=== PATIENT | male | born 2000 | race African-American/Black ===

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

== ENCOUNTER 2018-02-03 10:34 | Emergency (ER) | payer MEDICAID ==
[2018-02-03] MEDS ORDERED: D5W NS 1,000 ML IV ONE (11:17)
[2018-02-03] MEDS ORDERED: ONDANSETRON 4 MG/2 ML VIAL IVP ONE (11:17)
--- NOTE | 2018-02-03 11:28 | EDPHY ---
H & P Time Seen by Provider: 02/03/18 10:38 HPI/ROS: CHIEF COMPLAINT: Weight loss, nausea HISTORY OF PRESENT ILLNESS: Patient presents today with his mother for concerns about weight loss, poor appetite, nausea. He has history of cyclic vomiting syndrome has been seen at this facility many times in the past. Per his mother patient has been"not himself"for probably 6 months. He has had decreased appetite with a 20-30 lb weight loss over 6 months. He has had poor sleep. She states"things he loves go by the wayside". All he does is go to work and spent a lot of time in bed. Patient states he"feels fine", but he is an interested in food and swallowing his saliva makes him nauseous. He has self -induced vomiting occasionally. Patient does have history of using cannabis but states he has used an for 1 week. He denies other drugs or alcohol. He denies suicidal ideations now or any time in the past. No history or suggestion of psychosis or delusional thinking. REVIEW OF SYSTEMS: Contents of 10 point review of systems otherwise negative except for what is mentioned in HPI. General Appearance: Alert, no distress. Eyes: Pupils equal and round no icterus Respiratory: No respiratory distress Abdomen: Soft nontender nondistended. Bowel sounds normal. Neurological: Awake, alert, no focal deficits. Skin: Warm and dry, no rashes. Musculoskeletal: Neck is supple nontender. Extremities are symmetrical, full range of motion, no edema. Psychiatric: Patient is oriented X 3, there is no agitation. Medical/surgical history: Attention deficit hyperactivity disorder, cyclic vomiting syndrome. Social history: No tobacco or alcohol use. No history of IV drug use ever. [facility] is primary care. Never seen therapist or psychiatrist. Smoking Status: Never smoked Constitutional: Initial Vital Signs Temperature (C) 37.1 C 02/03/18 10:37 Heart Rate 85 02/03/18 10:37 Respiratory Rate 16 02/03/18 10:37 Blood Pressure 143/95 H 02/03/18 10:37 O2 Sat (%) 96 02/03/18 10:37 O2 Delivery Mode Room Air Allergies/Adverse Reactions: amoxicillin [Amoxicillin] Allergy (Verified 02/03/18 10:37) Pt reports Hives Home Medications: Medication Instructions Recorded Ambreen 01/04/18 Potassium Citrate [Potassium 30 meq PO BID #14 tablet.er 02/03/18 Citrate ER] Medical Decision Making ED Course/Re-evaluation: Shara Martins RN, called watch caser over at [facility] and plan is for follow -up with [facility] this coming week. Patient given 20 mEq of IV potassium as well as 20 mEq of p.o. potassium. Recheck however shows 2.3 with no change. Other electrolytes normalized. Discussed with patient need for continued IV infusion of potassium verses admission to hospital and he refused. Patient has capacity to refuse care and understands risks and benefits of leaving against medical advice. Nevertheless I will discharge him with potassium supplementation and strongly encouraged him to follow up with [facility] tomorrow for recheck of his potassium levels. Additionally he will follow up with [facility] as discussed earlier. Differential Diagnosis: Differential diagnosis includes but is not limited to depression, anorexia, electrolyte abnormality, dehydration, cyclic vomiting. Patient's presentation today consistent with depression and we have arranged for him to get follow-up with [facility]. However secondary to his decreased oral intake electrolytes are significantly abnormal. Potassium in particular is low at 2.3. Despite replacement in the emergency department values did not change. Patient refusing further potassium replacement or admission. He will be signed out against medical advice however he will be discharged with potassium replacement prescription and strong encouragement to follow up with [facility] for recheck. Also reviewed return precautions in detail. - Data Points Laboratory Results: 02/03/18 02/03/18 02/03/18 14:13 11:37 11:31 POC Hgb 17.0 gm/dL gm/dL (13.7-17.5) POC Hct 50 % % (40-51) POC Sodium 134 mEq/L L mEq/L 133 mEq/L L mEq/L 129 mEq/L L mEq/L (135-145) (135-145) (135-145) POC Potassium 2.3 mEq/L L* mEq/L 2.4 mEq/L L* mEq/L 2.4 mEq/L L* mEq/L (3.3-5.0) (3.3-5.0) (3.3-5.0) POC Chloride 91.0 mEq/L L mEq/L 81.0 mEq/L L mEq/L 81 mEq/L L mEq/L (97-110) (97-110) (97-110) POC Total CO2 30 mEq/L mEq/L 33 mEq/L H mEq/L (22-31) (22-31) POC BUN 5 mg/dL L mg/dL 6 mg/dL L mg/dL 6 mg/dL L mg/dL (7-23) (7-23) (7-23) POC Creatinine 0.5 mg/dL L mg/dL 0.7 mg/dL mg/dL 0.9 mg/dL mg/dL (0.7-1.3) (0.7-1.3) (0.7-1.3) POC Glucose 111 mg/dL H mg/dL 99 mg/dL mg/dL 101 mg/dL H mg/dL (70-100) (70-100) (70-100) POC Calcium 9.5 mg/dL mg/dL 10.6 mg/dL H mg/dL (8.5-10.4) (8.5-10.4) Medications Given: Discontinued Medications Dextrose/Sodium Chloride (D5w Ns) 1,000 mls @ 1,000 mls/hr IV ONCE ONE Stop: 02/03/18 12:16 Last Admin: 02/03/18 11:45 Dose: 1,000 mls Potassium Chloride (Potassium Cl 10 Meq (Premix)) 100 mls @ 100 mls/hr IV ONCE ONE Stop: 02/03/18 12:35 Last Admin: 02/03/18 12:08 Dose: 100 mls Potassium Chloride (Potassium Cl 10 Meq (Premix)) 100 mls @ 200 mls/hr IV ONCE ONE Stop: 02/03/18 12:27 Last Admin: 02/03/18 12:45 Dose: 100 mls Magnesium Sulfate/Dextrose (Magnesium Sulf 1 Gm (Premix)) 100 mls @ 100 mls/hr IV ONCE ONE Stop: 02/03/18 13:08 Last Admin: 02/03/18 12:45 Dose: 100 mls Sodium Chloride (Ns) 1,000 mls @ 0 mls/hr IV ONCE ONE PRN Reason: Wide Open Stop: 02/03/18 12:51 Last Admin: 02/03/18 12:55 Dose: 1,000 mls Ondansetron HCl (Zofran) 4 mg IVP EDNOW ONE Stop: 02/03/18 11:18 Last Admin: 02/03/18 11:46 Dose: 4 mg Potassium Chloride (Potassium Chloride Oral Liquid) 20 meq PO EDNOW ONE Stop: 02/03/18 11:39 Last Admin: 02/03/18 12:29 Dose: 20 meq Point of Care Test Results: Chemistry 02/03/18 02/03/18 02/03/18 14:13 11:37 11:31 POC Sodium 134 mEq/L L mEq/L 133 mEq/L L mEq/L 129 mEq/L L mEq/L (135-145) (135-145) (135-145) POC Potassium 2.3 mEq/L L* mEq/L 2.4 mEq/L L* mEq/L 2.4 mEq/L L* mEq/L (3.3-5.0) (3.3-5.0) (3.3-5.0) POC Chloride 91.0 mEq/L L mEq/L 81.0 mEq/L L mEq/L 81 mEq/L L mEq/L (97-110) (97-110) (97-110) POC Total CO2 30 mEq/L mEq/L 33 mEq/L H mEq/L (22-31) (22-31) POC BUN 5 mg/dL L mg/dL 6 mg/dL L mg/dL 6 mg/dL L mg/dL (7-23) (7-23) (7-23) POC Creatinine 0.5 mg/dL L mg/dL 0.7 mg/dL mg/dL 0.9 mg/dL mg/dL (0.7-1.3) (0.7-1.3) (0.7-1.3) POC Glucose 111 mg/dL H mg/dL 99 mg/dL mg/dL 101 mg/dL H mg/dL (70-100) (70-100) (70-100) POC Calcium 9.5 mg/dL mg/dL 10.6 mg/dL H mg/dL (8.5-10.4) (8.5-10.4) ISTAT H&H 02/03/18 11:31 POC Hgb 17.0 gm/dL gm/dL (13.7-17.5) POC Hct 50 % % (40-51) Departure - Departure Clinical Impression: Hypokalemia Depression Qualifiers: Depression Type: unspecified Qualified Code(s): F32.9 - Major depressive disorder, single episode, unspecified Condition: Fair Instructions: Hypokalemia (ED) Additional Instructions: Continue oral potassium replacement as prescribed. Follow up with [facility] tomorrow as well as [facility]. You should get your potassium recheck tomorrow or the next day without fail. Please return to the emergency department for any concerning new symptoms. Referrals: [facility] TURNER [Other] - As per Instructions [facility],. [Clinic] - As per Instructions Prescriptions: Potassium Citrate [Potassium Citrate ER] 30 meq PO BID #14 tablet.er
[2018-02-03] MEDS ORDERED: POTASSIUM Cl (KCl) 100 ML IV ONE ×2 (11:36→11:58)
[2018-02-03] MEDS ORDERED: POTASSIUM CL 20 MEQ/15 ML UDCUP PO ONE (11:38)
[2018-02-03] MEDS ORDERED: MAGNESIUM SULF 1 GM/DEXTROSE 100 ML IV ONE (12:09)
[2018-02-03] MEDS ORDERED: NS 1,000 ML IV ONE (12:50)
[2018-02-03 14:57] VITALS: BP 139/85
--- NOTE | 2018-02-04 15:11 | ASMTCMCOM ---
CM Note CM Note Notes: Received a CM consult order request yesterday while patient was being seen at our [facility] [place] [place] ED. Followed up w/[facility] (pt has been seen at their [place] location) and pt's last visit there was August 2016. Not sure if pt has been receiving primary care elsewhere but [facility] will reach out to the patient to schedule a follow-up for pt's ongoing CVS and depression; also requested/recommended to have a [facility] visit w/pt and/or refer pt to [facility]. CM available for further assistance if needed. Date Signed: 02/04/2018 03:10 PM Electronically Signed By:aMrah Lewis RN
== END 2018-02-03 15:07 | disposition home or self-care (01) ==
LOC: CED 10:34
DX: E87.6 Hypokalemia (principal)
CPT/HCPCS: 80048-PO; 82435-PO; 82565-PO; 82947-PO; 84132-PO; 84295-PO; 84520-PO; 85014-PO; 96365; J2405; J3475; J3480

== ENCOUNTER 2018-03-19 12:34 | Emergency (ER) | payer SELFPAY ==
[2018-03-19] MEDS ORDERED: NS 1,000 ML IV ONE (12:49)
[2018-03-19] MEDS ORDERED: METOCLOPRAMIDE 10 MG/2 ML VIAL IVP ONE (12:50)
--- NOTE | 2018-03-19 13:13 | EDPHY ---
H & P Stated Complaint: cyclical vomitting episode started 2 days ago Time Seen by Provider: 03/19/18 12:42 HPI/ROS: This patient presents with vomiting over the past 2 days with ongoing nausea anorexia and generalized abdominal cramping. The cramping started after the vomiting is described as 8/10 intensity. The symptoms are similar to prior episodes of cyclic vomiting for this patient. His mother brought him here by private vehicle. He reports associated mild lightheadedness today. He reports that he has abstain from marijuana for the past week in attempt to avoid these episodes. However, he admits that he has not followed up with outpatient clinicians that were provided during last visit as follow-up options. ROS: Constitutional: No fevers or chills. HEENT: No URI symptoms or other complaints pulmonary: Reports mild cough in wheeze with occasional shortness of breath. Explains this started over the past 45 days and he is having some yellow sputum production. He uses albuterol inhaler this morning shortly prior to arrival with mild improvement and notes no other exacerbating factors. GI: As per HPI. No hematemesis or coffee-ground emesis. : No dysuria frequency urgency. No urethral discharge. No testicular pain or swelling Integumentary: No skin rash Musculoskeletal: He reports myalgias and stiff muscles earlier today that is now resolved. Neuro: No headache. No focal numbness though he did have diffuse tingling earlier that has since resolved. 10 point review of symptoms is performed and otherwise negative with exception of pertinent positives and negatives listed in HPI and ROS Source: Patient Exam Limitations: No limitations - Personal History Tetanus Vaccine Date: within 10 yrs - Medical/Surgical History Hx Asthma: Yes Hx Chronic Respiratory Disease: No Hx Diabetes: No Hx Cardiac Disease: No Hx Renal Disease: No Hx Cirrhosis: No Hx Alcoholism: No Hx HIV/AIDS: No Hx Splenectomy or Spleen Trauma: No Other PMH: Cyclic vomiting, tonsillectomy, asthma - Family History Significant Family History: No pertinent family hx - Social History Smoking Status: Never smoked Alcohol Use: None Drug Use: Marijuana (Though reports that he abstain for last week.) - Physical Exam Exam: General Appearance: Pleasant young male Alert, no distress. Eyes: Pupils equal and round no pallor or injection. ENT, Mouth: Mucous membranes dry. Respiratory: Faint expiratory wheeze coughing. Rhonchi. No rales Cardiovascular: Tachycardic with no murmur gallop or rub Gastrointestinal: Abdomen is soft and nontender, no masses, bowel sounds normal. Neurological: GCS 15 with no focal deficits Skin: Warm and dry, no rashes. Musculoskeletal: Neck is supple nontender. Extremities are symmetrical, full range of motion. Psychiatric: Mood and affect are normal . DIFFERENTIAL DIAGNOSIS: After history and physical exam differential diagnosis was considered for cyclic vomiting syndrome, dehydration, gastroenteritis, food intolerance, anorexia, bulimia, asthma with mild symptoms, acute bronchitis Constitutional: Initial Vital Signs Temperature (C) 36.7 C 03/19/18 12:42 Heart Rate 106 H 03/19/18 12:42 Respiratory Rate 18 03/19/18 12:42 Blood Pressure 131/79 H 03/19/18 12:42 O2 Sat (%) 99 03/19/18 12:42 O2 Delivery Mode Room Air Allergies/Adverse Reactions: amoxicillin [Amoxicillin] Allergy (Verified 02/03/18 10:37) Pt reports Hives Home Medications: Medication Instructions Recorded Zofran 01/04/18 Potassium Citrate [Potassium 30 meq PO BID #14 tablet.er 02/03/18 Citrate ER] Albuterol Hfa Anes Only [Proair 2 puffs IH Q4 PRN #1 mdi 03/19/18 Hfa Icu (*)] Azithromycin [Zithromax] 250 mg PO DAILY #6 tab 03/19/18 Fluticasone Hfa 220 Mcg [Flovent 2 puffs IH DAILY #1 mdi 03/19/18 220 MCG Hfa MDI (*)] Ondansetron Odt [Zofran Odt] 4 - 8 mg PO Q4PRN PRN #4 tab 03/19/18 Potassium Cl [Klor-Con 20 meq (*)] 20 meq PO DAILY #20 tab 03/19/18 Medical Decision Making ED Course/Re-evaluation: IV normal saline bolus Reglan and Benadryl IV with resolution of his nausea vomiting abdominal pain. P.o. Intake without difficulty. Patient also had supplemental potassium for his hypokalemia single dose with plan to continue the same Given his history of smoking and productive cough with yellow sputum, will cover him with Zithromax for bronchitis. I counseled regarding this. Discussion: Patient with cyclic vomiting syndrome responded well to treatment here with associated bronchitis and hypokalemia-mild. Will treat him with Zofran, Zithromax, albuterol Flovent with plan to follow up with primary care physician. He will also be on supplemental potassium. He understands need to return should develop worsening symptoms. I encouraged him to continue his abstinence from marijuana a reiterating the likely correlation between regular marijuana use in his cyclic vomiting syndrome. Patient voices understanding and expresses a plan to comply. - Data Points Medications Given: Discontinued Medications Diphenhydramine HCl (Benadryl Injection) 25 mg IVP EDNOW ONE Stop: 03/19/18 12:51 Last Admin: 03/19/18 13:22 Dose: 25 mg Sodium Chloride (Ns) 1,000 mls @ 0 mls/hr IV EDNOW ONE; Wide Open PRN Reason: Protocol Stop: 03/19/18 12:50 Last Admin: 03/19/18 13:15 Dose: 1,000 mls Metoclopramide HCl (Reglan Injection) 10 mg IVP EDNOW ONE Stop: 03/19/18 12:51 Last Admin: 03/19/18 13:23 Dose: 10 mg Potassium Chloride (Potassium Chloride Oral Liquid) 20 meq PO EDNOW ONE Stop: 03/19/18 13:44 Last Admin: 03/19/18 13:51 Dose: 20 meq Point of Care Test Results: CBC CBC Collection Date 03/19/18 CBC Collection Time 13:15 WBC 13.3 RBC 5.49 HGB 18.4 HCT 51.2 PLT 350 Neut # 11 Neut 82.9 LYMPH # 1.3 LYMPH 9.4 Other WBC # 1.0 Other WBC 7.7 MCV 93.3 Chemistry 03/19/18 13:23 POC Sodium 136 mEq/L mEq/L (135-145) POC Potassium 2.8 mEq/L L mEq/L (3.3-5.0) POC Chloride 91.0 mEq/L L mEq/L (97-110) POC Total CO2 29 mEq/L mEq/L (22-31) POC BUN 16 mg/dL mg/dL (7-23) POC Creatinine 0.9 mg/dL mg/dL (0.7-1.3) POC Glucose 105 mg/dL H mg/dL (70-100) POC Calcium 11.6 mg/dL H mg/dL (8.5-10.4) Urine Dip Collection Date 03/19/18 Collection Time 15:05 Specific [place] (1.002-1.030) 1.020 PH (5.0-7.5) 6.0 Leukocytes (Negative) 1+ Nitrites (Negative) Negative Protein (Negative) 3+ Glucose (Negative) Negative Ketones (Negative) Negative Urobilnogen (0.2-1.0 EU) 0.2 Bilirubin (Negative) Negative Blood (Negative) 1+ Departure - Departure Disposition: Home, Routine, Self-Care Clinical Impression: Cyclic vomiting syndrome, Dehydration, RAD (reactive airway disease), Bronchitis Condition: Good Instructions: Acute Nausea and Vomiting (ED), Reactive Airways Disease (ED) Additional Instructions: Diagnosis: Cyclic vomiting syndrome 2. Dehydration 3. Reactive airway disease 4. Hypokalemia 5. bronchitis Plan: Stay off marijuana. Zofran for nausea vomiting if needed Flovent steroid inhaler and albuterol inhaler for cough, wheeze shortness of breath Supplemental potassium as prescribed Zithromax antibiotic Follow up with primary care physician Return for any significant worsening despite treatment plan Referrals: NONE *PRIMARY CARE P,. [Primary Care Provider] - As per Instructions Patricia Canales MD [Medical Doctor] - As per Instructions Stand Alone Forms: Work Excuse Prescriptions: Albuterol Hfa Anes Only [Proair Hfa Icu (*)] 2 puffs IH Q4 PRN #1 mdi PRN Reason: Wheezing Azithromycin [Zithromax] 250 mg PO DAILY #6 tab Fluticasone Hfa 220 Mcg [Flovent 220 MCG Hfa MDI (*)] 2 puffs IH DAILY #1 mdi Ondansetron Odt [Zofran Odt] 4 - 8 mg PO Q4PRN PRN #4 tab PRN Reason: Vomiting Potassium Cl [Klor-Con 20 meq (*)] 20 meq PO DAILY #20 tab
[2018-03-19] MEDS ORDERED: POTASSIUM CL 20 MEQ/15 ML UDCUP PO ONE (13:43)
[2018-03-19 14:30] VITALS: BP 132/88
== END 2018-03-19 14:40 | disposition home or self-care (01) ==
LOC: CED 12:34
DX: G43.A0 Cyclical vomiting, in migraine, not intractable (principal); J40 Bronchitis, not specified as acute or chronic; J45.909 Unspecified asthma, uncomplicated; E86.0 Dehydration
CPT/HCPCS: 80048-PO; 96374; J1200; J2765

== ENCOUNTER 2018-07-25 08:58 | Emergency (ER) | payer MEDICAID ==
[2018-07-25] MEDS ORDERED: IBUPROFEN 600 MG TAB PO ONE (09:16)
--- NOTE | 2018-07-25 09:21 | EDPHY ---
H & P Time Seen by Provider: 07/25/18 09:14 HPI/ROS: CHIEF COMPLAINT: Body aches, chills HISTORY OF PRESENT ILLNESS: The patient is a 18-year-old male who presents to the emergency department with body aches and chills. His symptoms started 2 days ago. He has not measured a temperature. He has a mild cough. The triage sheet states it is productive but he is not complaining of significant cough when I question him. He has had no rash. No abdominal pain. No vomiting. No diarrhea. No neck pain or stiffness. No visual changes. No photophobia. REVIEW OF SYSTEMS: 10 systems were reveiwed and are negative with the exception of the elements mentioned in the history of present illness. Past Medical/Surgical History: Includes asthma Past surgical history: Tonsillectomy Social history: Patient does not smoke Smoking Status: Never smoked Physical Exam: 36.6, 143/83, 104, 16, 94% on room air GENERAL: Well-appearing, in no acute distress, alert. HEENT: Eyes normal to inspection, normal pharynx, no signs of dehydration. Normal NECK: Normal, supple. RESPIRATORY: Clear to auscultation bilaterally, no rales, rhonchi or wheezing. Normal CVS: Regular rate and rhythm, no rubs, murmurs, or gallops. ABDOMEN: Soft, nontender, nondistended, no organomegaly. Benign BACK: Normal to inspection, no CVA tenderness. SKIN: Normal color, no rash, warm, dry. No pallor. EXTREMITIES: No pedal edema, no calf tenderness, no Homans sign or cords, no joint swelling. NEURO/PSYCH: Alert and oriented, normal mood and affect, normal motor sensory exam. Constitutional: Initial Vital Signs Temperature (C) 36.6 C 07/25/18 09:06 Heart Rate 104 H 07/25/18 09:06 Respiratory Rate 16 07/25/18 09:06 Blood Pressure 143/83 H 07/25/18 09:06 O2 Sat (%) 94 07/25/18 09:06 O2 Delivery Mode Room Air Allergies/Adverse Reactions: amoxicillin [Amoxicillin] Allergy (Verified 07/25/18 09:07) Pt reports Hives Home Medications: Medication Instructions Recorded Oseltamivir Phosphate [Tamiflu 75 75 mg PO BID 5 Days cap 07/25/18 mg (*)] Medical Decision Making ED Course/Re-evaluation: In the emergency department I discussed possible etiologies with the patient. I answered all his questions. Patient was given a prescription of Tamiflu. He was given Motrin and fluid in the emergency department. Patient was given warnings prior to leaving. He will return with worsening symptoms. Differential Diagnosis: My differential includes but is not limited to viral illness, influenza, pneumonia, bronchitis, asthma exacerbation, acute abdomen, small-bowel obstruction, perforation, appendicitis Departure - Departure Disposition: Home, Routine, Self-Care Clinical Impression: Viral illness Condition: Good Instructions: Viral Syndrome (ED) Additional Instructions: Return with increasing cough, shortness of breath or any other concerns Referrals: Theo Ngo MD [Medical Doctor] - 5-7 days, call for appt. Prescriptions: Oseltamivir Phosphate [Tamiflu 75 mg (*)] 75 mg PO BID 5 Days cap
[2018-07-25 09:32] VITALS: BP 138/78
== END 2018-07-25 09:30 | disposition home or self-care (01) ==
LOC: CED 08:58
DX: B34.9 Viral infection, unspecified (principal)
CPT/HCPCS: 99283-ER

== ENCOUNTER 2018-10-08 18:10 | Emergency (ER) | payer MEDICAID ==
--- NOTE | 2018-10-08 18:17 | EDPHY ---
H & P Time Seen by Provider: 10/08/18 18:16 HPI/ROS: HPI CHIEF COMPLAINT: Vomiting HISTORY OF PRESENT ILLNESS: This patient is a 18-year-old male, history of cyclic vomiting syndrome, asthma, presents emergency room nausea vomiting. Patient states that he had bad milk this afternoon at the gas station. Patient states he picked up a bottle of milk and drank at a gas station he feels that the milk was bad and started having vomiting afterwards. States he vomited mostly curdled milk. No blood. No diarrhea no abdominal pain, no fever , denies any chest pain or shortness of breath. States he vomited numerous times this what prompted him to come the emergency room. Past Medical History: History of cyclic vomiting syndrome, asthma Past Surgical History: Tonsillectomy Social History: Denies drugs alcohol tobacco. Family History: Noncontributory ROS REVIEW OF SYSTEMS: 10 Systems were reviewed and negative with the exception of the elements mentioned in the history of present illness. Exam Constitutional vital signs stable, appears well, nontoxic triage nursing summary reviewed, vital signs reviewed, awake/alert. Eyes normal conjunctivae and sclera, EOMI, PERRLA. HENT normal inspection, atraumatic, moist mucus membranes, no epistaxis, neck supple/ no meningismus, no raccoon eyes. Respiratory clear to auscultation bilaterally, normal breath sounds, no respiratory distress, no wheezing. Cardiovascular rate normal, regular rhythm, no murmur, no edema, distal pulses normal. Gastrointestinal no significant tenderness on exam, soft, non-tender, no rebound, no guarding, normal bowel sounds, no distension, no pulsatile mass. Genitourinary no CVA tenderness. Musculoskeletal no midline vertebral tenderness, full range of motion, no calf swelling, no tenderness of extremities, no meningismus, good pulses, neurovascularly intact. Skin pink, warm, & dry, no rash, skin atraumatic. Neurologic awake, alert and oriented x 3, AAOx3, moves all 4 extremities equally, motor intact, sensory intact, CN II-XII intact, normal cerebellar, normal vision, normal speech. Psychiatric normal mood/affect. Heme/Lymph/Immune no lymphadenopathy. Differential Diagnosis: Includes but is not limited to in a particular order dehydration, gastritis, acute nausea vomiting, food-borne exposure, sour milk Medical Decision Making: Plan for this patient IV establishment IV fluid bolus , IV nausea medicine, IV Pepcid, basic labs and re-evaluate. Re-evaluation: 1944: Patient is requesting discharge. He states he feels much better. Received IV fluids, IV Zofran IV Pepcid. He is not vomiting. He denies any abdominal pain chest pain or shortness of breath, denies fever. He p.o. Challenge well. Patient is requesting be discharged home. We discussed return precautions he understands return to the emergency room if develops worsening abdominal pain, fever, vomiting, not doing well. Most likely cause of vomiting is food-borne illness/milk. CBC and Chem normal. Re-examination: abd soft nt. Po challenge well Return precautions discussed. Return to er if worsening symptoms, abdominal pain, fever, vomiting. Source: Patient, Old records - Personal History Tetanus Vaccine Date: within 10 yrs - Medical/Surgical History Hx Asthma: Yes Hx Chronic Respiratory Disease: No Hx Diabetes: No Hx Cardiac Disease: No Hx Renal Disease: No Hx Cirrhosis: No Hx Alcoholism: No Hx HIV/AIDS: No Hx Splenectomy or Spleen Trauma: No Other PMH: Cyclic vomiting, tonsillectomy, asthma - Social History Smoking Status: Never smoked Constitutional: Initial Vital Signs Temperature (C) 37.4 C 10/08/18 18:16 Heart Rate 103 H 10/08/18 18:16 Respiratory Rate 16 10/08/18 18:16 Blood Pressure 152/109 H 10/08/18 18:16 O2 Sat (%) 97 10/08/18 18:16 O2 Delivery Mode Room Air Allergies/Adverse Reactions: amoxicillin [Amoxicillin] Allergy (Verified 10/08/18 18:16) Pt reports Hives Home Medications: Medication Instructions Recorded NK [No Known Home Meds] 10/08/18 Medical Decision Making - Data Points Laboratory Results: 10/08/18 18:41 POC Sodium 141 mEq/L mEq/L (135-145) POC Potassium 4.1 mEq/L mEq/L (3.3-5.0) POC Chloride 98.0 mEq/L mEq/L (97-110) POC Total CO2 28 mEq/L mEq/L (22-31) POC BUN 14 mg/dL mg/dL (7-23) POC Creatinine 0.8 mg/dL mg/dL (0.7-1.3) POC Glucose 112 mg/dL H mg/dL (70-100) POC Calcium 11.2 mg/dL H mg/dL (8.5-10.4) POC Total Bilirubin 0.8 mg/dL mg/dL (0.1-1.4) POC AST 35 IU/L IU/L (17-59) POC ALT 30 IU/L IU/L (21-72) POC Alk Phosphatase 72 IU/L IU/L (38-126) POC Total Protein 8.5 g/dL H g/dL (6.3-8.2) POC Albumin 5.3 g/dL H g/dL (3.5-5.0) Medications Given: Discontinued Medications Famotidine (Pepcid) 20 mg IVP EDNOW ONE Stop: 10/08/18 18:27 Last Admin: 10/08/18 18:41 Dose: 20 mg Sodium Chloride (Ns) 2,000 mls @ 0 mls/hr IV ONCE ONE PRN Reason: Wide Open Stop: 10/08/18 18:27 Last Admin: 10/08/18 18:39 Dose: 2,000 mls Ondansetron HCl (Zofran) 4 mg IVP EDNOW ONE Stop: 10/08/18 18:27 Last Admin: 10/08/18 18:40 Dose: 4 mg Point of Care Test Results: CBC CBC Collection Date 10/08/18 CBC Collection Time 18:34 WBC 5.47 RBC 5.26 HGB 17.0 HCT 47.5 PLT 335 Neut # 4.56 Neut 83.3 LYMPH # 0.71 LYMPH 13.0 MCV 90.3 Chemistry 10/08/18 18:41 POC Sodium 141 mEq/L mEq/L (135-145) POC Potassium 4.1 mEq/L mEq/L (3.3-5.0) POC Chloride 98.0 mEq/L mEq/L (97-110) POC Total CO2 28 mEq/L mEq/L (22-31) POC BUN 14 mg/dL mg/dL (7-23) POC Creatinine 0.8 mg/dL mg/dL (0.7-1.3) POC Glucose 112 mg/dL H mg/dL (70-100) POC Calcium 11.2 mg/dL H mg/dL (8.5-10.4) POC Total Bilirubin 0.8 mg/dL mg/dL (0.1-1.4) POC AST 35 IU/L IU/L (17-59) POC ALT 30 IU/L IU/L (21-72) POC Alk Phosphatase 72 IU/L IU/L (38-126) POC Total Protein 8.5 g/dL H g/dL (6.3-8.2) POC Albumin 5.3 g/dL H g/dL (3.5-5.0) Departure - Departure Disposition: Home, Routine, Self-Care Clinical Impression: Vomiting Qualifiers: Vomiting type: unspecified Vomiting Intractability: non-intractable Nausea presence: with nausea Qualified Code(s): R11.2 - Nausea with vomiting, unspecified Condition: Good Instructions: Acute Nausea and Vomiting (ED) Additional Instructions: 1. [place] diet no spicy fatty greasy foods. 2. Return to the emergency room if worsening abdominal pain, fever, vomiting. Referrals: NONE *PRIMARY CARE P,. [Primary Care Provider] - As per Instructions [facility],. [Clinic] - As per Instructions
[2018-10-08] MEDS ORDERED: ONDANSETRON 4 MG/2 ML VIAL IVP ONE (18:26)
[2018-10-08] MEDS ORDERED: FAMOTIDINE 20 MG/2 ML SDV IVP ONE (18:26)
[2018-10-08] MEDS ORDERED: NS 2,000 ML IV ONE (18:26)
[2018-10-08 19:46] VITALS: BP 151/100
== END 2018-10-08 19:48 | disposition home or self-care (01) ==
LOC: CED 18:10
DX: R11.2 Nausea with vomiting, unspecified (principal)
CPT/HCPCS: 80053-ER; 85025-QW-ER; 96361-ER; 96374-ER; 96375-ER; 99284-ER; J2405